=== PATIENT | female | born 1950 | race Caucasian/White ===

== ENCOUNTER → 2021-05-07 | Outpatient (CLI) | payer MEDICARE, OTHER ==
[~2021-05-07] MED LIST: ALL 100 SUPER B1 TAB; ARMOUR THYROID60 MG PO; ASPIR 8181 MG PO; ATENOLOL50 MG PO; CARAFATE1 GM PO; CARDIZEM120 MG PO; COLACE100 MG PO; GAVISCON; LIDEX 0.05% CRE15 GM T; LISINOPRIL/HCTZ1 TA3 PO; LISINOPRIL/HYDR1 TA1; LISINOPRIL20 MG PO; NEXIUM40 MG PO; PRAVACHOL40 MG PO; PROPAFENONE HC150 MG PO; PROTONIX40 MG PO; SIMVASTATIN40 MG PO; SOTALOL80 MG PO; TENORMIN25 MG; TENORMIN50 MG; VITAMIN D3; [UNRECOGNIZED DRUG - OTHER]
== END | disposition home or self-care (01) ==
LOC: COVID19 15:36
PROVIDERS: ATTEND Internal Medicine
DX: Z11.52 Encounter for screening for COVID-19 (principal)

== ENCOUNTER 2022-11-21 09:35 | Emergency (ER) | payer MEDICARE, OTHER ==
[~2022-11-21] VITALS: Ht 157.5 cm; Wt 81.6 kg
[2022-11-21 09:40] VITALS: BP 154/88
[2022-11-21] MEDS ORDERED: VIBRAMYCIN HYC100 MG PO (11:05)
== END 2022-11-21 11:25 | disposition home or self-care (01) ==
LOC: ED 09:35
DX: R04.0 Epistaxis (principal); E78.5 Hyperlipidemia, unspecified; I48.91 Unspecified atrial fibrillation; K21.9 Gastro-esophageal reflux disease without esophagitis; Z88.0 Allergy status to penicillin; Z88.5 Allergy status to narcotic agent; Z91.041 Radiographic dye allergy status; Z88.1 Allergy status to other antibiotic agents; Z88.8 Allergy status to other drugs, medicaments and biological substances; Z91.013 Allergy to seafood; Z90.89 Acquired absence of other organs; Z90.710 Acquired absence of both cervix and uterus; Z98.890 Other specified postprocedural states